=== PATIENT | male | born 1985 | race African-American/Black ===

== ENCOUNTER 2023-07-22 12:06 | Emergency (ER) | payer BC ==
--- OUTSIDE RECORDS SUMMARY | 2023-07-22 12:11 | XMS REPORT | Continuity of Care Document ---
:1985 Author Organization [facility] t Address [address] [place] [address] [address] [place] [address] Care Team Providers Name Role Phone ALEXIS HILL Primary Care Physician Unavailable RADIOLOGY Attending Clinician Unavailable Radiology Attending Clinician Unavailable Doctor Unassigned, [place] Attending Clinician Unavailable ALEXIS HILL Admitting Clinician Unavailable Payers Payer Name Policy Type Policy Number Effective Date Expiration Date S [facility] - [id number] 2018 00:00:00 OUT OF STATE Problems Condition Condition Condition Status Onset Resolution Last Treating Co mments Source Name Details Category Date Date Treatment Clinician Date Tobacco Tobacco Disease Active Univers abuse abuse 09-21 ity of 00:00: [address] Allergies, Adverse Reactions, Alerts Allergy Allergy Status Severity Reaction(s) Onset Inactive Treating Comm ents Source Name Type Date Date Clinician NO KNOWN Drug Active Univers ALLERGIE Class ity of S [facility] Social History Social Habit Start Date Stop Date Quantity Comments Source History of Occasional tobacco Univer sity of tobacco use smoker [facility] Tobacco use and 2018-09-21 2018-09-21 Smokeless tobacco Un iversity of exposure 00:00:00 00:00:00 non-user [facility] Sex Assigned At [birth year] Universit y of 00:00:00 00:00:00 [facility] Smoking Status Start Date Stop Date Source Occasional tobacco smoker 2018-09-21 00:00:00 Un iversity of [facility] Medications Ordered Filled Start Stop Current Ordering Indication Dosage Frequency Signature Comments Components Source Medication Medication Date Date Medication? Clinician (SIG) Name Name acetaminoph 2018-0 Yes [id number] 09/14 Univers en-codeine 1-09 tab Every ity of 300-30 mg 00:00: 4hrs as [place] tablet 00 needed for Medical pain or Branch cough requiring narcotic acetaminoph 2018-0 Yes [id number] 09/14 Univers en-codeine 1-09 tab Every ity of 300-30 mg 00:00: 4hrs as [place] tablet 00 needed for Medical pain or Branch cough requiring narcotic Procedures Procedure Date / Time Performed Performing Clinician [facility] e ASSIGNMENT OF BENEFITS 2022-05-01 21:42:02 Doctor Unassigned, No [facility] Branch Encounters Start End Encounter Admission Attending Care Care Encounter Source Date/Time Date/Time Type Type Clinicians Facility Department ID 2022-05-01 2022-05-01 Outpatient R RADIOLOGY [facility] [id number] Univers 16:45:22 23:59:00 ity of [facility] 2022-05-01 2022-05-01 Hospital Radiology [facility] [id number] Univers 16:45:00 23:59:00 Encounter [place] [id number] ity of [place] [id number] [place] [facility] [id number] [facility] 807 Branch 2022-05-01 2022-05-01 Orders Doctor OANH [id number] Univers 00:00:00 00:00:00 Only Unassigned, GA[place] [id number] ity of [place] [facility] [id number] Marty as [id number] [facility] 009 Branch Results This patient has no known results.
[2023-07-22 13:29] LABS: Absolute Lymphocytes (CBC) 1.3 K/uL (0.7-4.9); Lymphocytes % 27.4 % (15.3-44.8); MCV 93.4 fL (80-100); MPV 8.9 fL (7.6-11.3); Platelets 262 thou/uL (152-406); RBC Red Blood Cell Count 4.28 M/uL (4.33-5.43)
[2023-07-22] MEDS ORDERED: NA CHLORIDE 0.9% 1,000 ML ONE (13:55)
[2023-07-22 13:57] LABS: ALT/SGPT 26 U/L (16-61); Albumin 3.7 g/dL (3.4-5.0); Alkaline Phosphatase 60 U/L (45-117); BUN Blood Urea Nitrogen 35 mg/dL (7-18); Bilirubin Total 0.4 mg/dL (0.2-1.0); Glomerular Filtration Rate 36 ml/min (=/>90); Glucose Level 590 mg/dL (74-106); Protein, Total 8.4 g/dL (6.4-8.2); Sodium Level 125 mEq/L (136-145); Troponin High Sensitivity 6.9 pg/mL (<58.9)
[2023-07-22 13:58] LABS: AST/SGOT 10 U/L (15-37); Bilirubin Direct < 0.1 mg/dL (0-0.2); Bilirubin Indirect, Calculated ND mg/dL (0.2-0.8); NT PRO-BNP < 5 pg/mL (<125); Potassium 4.8 mEq/L (3.5-5.1)
[2023-07-22 13:59] LABS: Magnesium 2.5 mg/dL (1.6-2.4)
[2023-07-22 14:01] LABS: Bicarbonate 8 mEq/L (21-32)
[2023-07-22] MEDS ORDERED: INSULIN REGULAR (HUMAN) 100 UNIT/ML ONE (14:07)
[2023-07-22] MEDS ORDERED: INSULIN -REGULAR HUMAN 100 UNIT in NA CHLORIDE 0.9% 100 ML IV SCH (15:00)
--- NOTE | 2023-07-22 15:01 | EDPHYS ---
Physician Documentation [facility] Name: Jose Watkins Age: 37 yrs Sex: Male : 1985 Arrival Date: 07/22/2023 Time: 12:06 Bed 17 Private MD: ED Physician Kayden Harp HPI: 07/22 13:44 This 37 yrs old Black Male presents to ER via Wheelchair with complaints of High Blood sp3 Sugar. 13:44 37-year-old male with a history of gout, hypertension presents to the ED with chief sp3 complaint 3 days of fatigue, polyuria, polydipsia with no prior history of diabetes. Blood sugar in the emergency department demonstrates new onset diabetes at 490 blood sugar level. He denies any other symptoms including fever, headache, URI symptoms, chest pain, shortness of breath, vomiting or diarrhea, syncope, near syncope, neuro symptoms, known sick contacts, or any other signs or symptoms at this time. Patient did have travel history to [place] for family vacation.. Historical: - Allergies: 12:41 No Known Allergies; iw - PMHx: 12:41 Gout; iw - Immunization history:: Adult Immunizations up to date. - Social history:: Smoking status: Patient denies any tobacco usage or history of. Patient/guardian denies using alcohol. ROS: 13:45 Eyes: Negative for injury, pain, redness, and discharge, ENT: Negative for injury, sp3 pain, and discharge, Neck: Negative for injury, pain, and swelling, Cardiovascular: Negative for chest pain, palpitations, and edema, Respiratory: Negative for shortness of breath, cough, wheezing, and pleuritic chest pain, Back: Negative for injury and pain, MS/Extremity: Negative for injury and deformity, Skin: Negative for injury, rash, and discoloration, Psych: Negative for depression, anxiety, suicide ideation, homicidal ideation, and hallucinations, Allergy/Immunology: Negative for hives, rash, and allergies, 13:45 All other systems are negative, Exam: 13:45 Constitutional: This is a well developed, well nourished patient who is awake, alert, sp3 and in no acute distress. Head/Face: Normocephalic, atraumatic. Eyes: Pupils equal round and reactive to light, extra-ocular motions intact. Lids and lashes normal. Conjunctiva and sclera are non-icteric and not injected. Cornea within normal limits. Periorbital areas with no swelling, redness, or edema. Neck: Trachea midline, no thyromegaly or masses palpated, and no cervical lymphadenopathy. Supple, full range of motion without nuchal rigidity, or vertebral point tenderness. No Meningismus. Chest/axilla: Normal chest wall appearance and motion. Nontender with no deformity. No lesions are appreciated. Cardiovascular: Regular rate and rhythm with a normal S1 and S2. No gallops, murmurs, or rubs. Normal PMI, no JVD. No pulse deficits. Respiratory: Lungs have equal breath sounds bilaterally, clear to auscultation and percussion. No rales, rhonchi or wheezes noted. No increased work of breathing, no retractions or nasal flaring. Abdomen/GI: Soft, non-tender, with normal bowel sounds. No distension or tympany. No guarding or rebound. No evidence of tenderness throughout. Back: No spinal tenderness. No costovertebral tenderness. Full range of motion. Skin: Warm, dry with normal turgor. Normal color with no rashes, no lesions, and no evidence of cellulitis. MS/ Extremity: Pulses equal, no cyanosis. Neurovascular intact. Full, normal range of motion. Neuro: Awake and alert, GCS 15, oriented to person, place, time, and situation. Cranial nerves II-XII grossly intact. Motor strength 5/5 in all extremities. Sensory grossly intact. Cerebellar exam normal. Normal gait. Psych: Awake, alert, with orientation to person, place and time. Behavior, mood, and affect are within normal limits. 15:06 ECG was reviewed by the Attending Physician. EKG demonstrates normal sinus rhythm at 86 sp3 bpm with normal intervals, normal QRS, normal axis, normal axis ST segments without evidence of acute ischemia. Vital Signs: 12:41 BP 101 / 53; Pulse 88; Resp 16; Temp 98.2; Pulse Ox 100% on R/A; Weight 127.46 kg; iw Height 6 ft. 1 in. ; 13:44 BP 126 / 85; Pulse 88; Resp 21; Pulse Ox 100% on R/A; ld1 14:46 BP 120 / 45; Pulse 92; Pulse Ox 99% ; tm6 15:30 BP 91 / 52; Pulse 93; Resp 18; Pulse Ox 100% on R/A; tm6 16:00 BP 101 / 48; Pulse 94; Pulse Ox 99% on R/A; tm6 12:41 Body Mass Index 37.07 (127.46 kg, 185.42 cm) iw MDM: 12:40 Patient medically screened. sp3 13:46 Data reviewed: vital signs, nurses notes, lab test result(s), radiologic studies. ED sp3 course: 37-year-old male with new onset diabetes. Consider hyperglycemia with mild dehydration versus early DKA. I am not highly suspicious for sepsis, shock, or other inducing event. Disposition pending work-up and patient course.. 14:59 ED course: Discussed with ICU topper press operator at [facility] who has accepted the sp3 patient. We will transfer to the ICU at this time.. 11 12:44 Order name: Basic Metabolic Panel; Complete Time: 14:05 sp3 07/22 12:44 Order name: CBC with Diff; Complete Time: 13:47 sp3 07/22 12:44 Order name: LFT's; Complete Time: 14:05 sp3 07/22 12:44 Order name: Magnesium; Complete Time: 14:05 sp3 07/22 12:44 Order name: NT PRO-BNP; Complete Time: 14:05 sp3 07/22 12:44 Order name: Troponin HS; Complete Time: 14:05 sp3 07/22 12:44 Order name: Lactate w/ 2H reflex if indic.; Complete Time: 13:47 sp3 07/22 13:01 Order name: Glucose, Ancillary Testing; Complete Time: 13:18 EDMS 07/22 14:18 Order name: Glucose, Ancillary Testing; Complete Time: 14:38 EDMS 07/22 14:35 Order name: Glucose, Ancillary Testing; Complete Time: 14:38 EDMS 07/22 16:00 Order name: Glucose, Ancillary Testing EDIA 07/22 12:44 Order name: EKG; Complete Time: 12:45 sp3 07/22 12:44 Order name: Cardiac monitoring; Complete Time: 13:40 sp3 07/22 12:44 Order name: EKG - Nurse/Tech; Complete Time: 13:40 sp3 07/22 12:44 Order name: IV Saline Lock; Complete Time: 13:38 sp3 07/22 12:44 Order name: Labs collected and sent; Complete Time: 13:38 sp3 07/22 12:44 Order name: O2 Per Protocol; Complete Time: 13:38 sp3 07/22 12:44 Order name: O2 Sat Monitoring; Complete Time: 13:38 sp3 07/22 12:44 Order name: Accucheck; Complete Time: 12:50 sp3 07/22 13:10 Order name: Labs - recollect needed: LT GREEN , LAVENDER lipemic protocol; Complete bc6 Time: 13:43 Administered Medications: 13:43 Drug: NS 0.9% IV 1000 ml IV at 1 bolus Per protocol; 1000 mL bolus Route: IV; Rate: 1 ld1 bolus; Site: right antecubital; 14:06 Drug: Insulin Regular Human IVP 10 units IVP once {Co-Signature: mery (Suzanna Dsouza tm6 RN).} Route: IVP; Site: right antecubital; 14:35 Drug: Insulin Drip - (Insulin Regular Human IVP 100 units, NS 0.9% IV 100 ml) IV at tm6 calculated rate continuous; Standard concentration 1unit/ml; Dose for DKA is 0.1 units/kg/hr {Co-Signature: mery (Suzanna Dsouza RN).} Route: IV; Rate: calculated rate; Site: right antecubital; Disposition Summary: 07/22/23 15:01 Transfer Ordered Notes: Transfer Location: Other Acute Care Facility sp3 Reason: Higher level of care sp3 Condition: Critical sp3 Problem: new sp3 Symptoms: are unchanged sp3 Accepting Physician: Dr. Aquino in the ICU(07/22/23 16:29) ld1 Diagnosis - Diabetic ketoacidosis, dehydration, hyperglycemia sp3 Discharge Instructions: - Discharge Summary Sheet bc6 Forms: - Medication Reconciliation Form sp3 - SBAR form bc6 - Family Work Release tm6 Signatures: Dispatcher [employer] Airam Amaro RN RN iw Attema, Lee, FNP-C FNP-ClaSuzanna Klein RN RN ld1 Kayden Harp MD MD sp3 [place]son, Breana bc6 Salima Sahni RN RN tm6 Suzanna Dsouza RN ld1 Corrections: (The following items were deleted from the chart) 16:29 15:01 Dr. Aquino in the ICU sp3 ld1
--- NOTE | 2023-07-22 15:01 | ER ---
Nurse's Notes [facility] Name: Jose Watkins Age: 37 yrs Sex: Male : 1985 Arrival Date: 07/22/2023 Time: 12:06 Bed 17 Private MD: Diagnosis: Diabetic ketoacidosis, dehydration, hyperglycemia Presentation: 07/22 12:39 Chief complaint: Patient states: went to Dr. Lombardi for sleeping a lot, drinking a lot iw of water, weight loss, had labs done, they were worried that he had diabetes, no hx of diabetes, BP was low in office. Coronavirus screen: At this time, the client does not indicate any symptoms associated with coronavirus-19. Ebola Screen: Patient negative for fever greater than or equal to 101.5 degrees Fahrenheit, and additional compatible Ebola Virus Disease symptoms Patient denies exposure to infectious person. Patient denies travel to an Ebola-affected area in the 21 days before illness onset. No symptoms or risks identified at this time. Initial Sepsis Screen: Does the patient meet any 2 criteria? No. Patient's initial sepsis screen is negative. Does the patient have a suspected source of infection? No. Patient's initial sepsis screen is negative. Risk Assessment: Do you want to hurt yourself or someone else? Patient reports no desire to harm self or others. Onset of symptoms was July 14, 2023. 12:39 Method Of Arrival: Wheelchair iw 12:39 Acuity: RAPHAEL 3 iw Triage Assessment: 15:50 General: Behavior is calm, cooperative, drowsy. General: Appears in no apparent tm6 distress. Pain: Denies pain. EENT: No signs and/or symptoms were reported regarding the EENT system. Neuro: Level of Consciousness is awake, alert, obeys commands, Oriented to person, place, time, situation. Cardiovascular: Capillary refill < 3 seconds Patient's skin is warm and dry. Respiratory: Airway is patent Respiratory effort is even, unlabored, Respiratory pattern is regular, symmetrical. GI: Abdomen is round. : No signs and/or symptoms were reported regarding the genitourinary system. Derm: No signs and/or symptoms reported regarding the dermatologic system. Musculoskeletal: No signs and/or symptoms reported regarding the musculoskeletal system. Historical: - Allergies: 12:41 No Known Allergies; iw - PMHx: 12:41 Gout; iw - Immunization history:: Adult Immunizations up to date. - Social history:: Smoking status: Patient denies any tobacco usage or history of. Patient/guardian denies using alcohol. Screenin:48 [facility] ED Fall Risk Assessment (Adult) History of falling in the last 3 months, tm6 including since admission No falls in past 3 months (0 pts). Abuse screen: Denies threats or abuse. Denies injuries from another. Nutritional screening: No deficits noted. Tuberculosis screening: No symptoms or risk factors identified. Assessment: 13:47 General: Appears in no apparent distress. Pain: Denies pain. Neuro: Level of tm6 Consciousness is awake, alert, obeys commands, Oriented to person, place, time, situation. Cardiovascular: Capillary refill < 3 seconds Patient's skin is warm and dry. Respiratory: Airway is patent Respiratory effort is even, unlabored, Respiratory pattern is regular, symmetrical. GI: Abdomen is round non-distended. : No signs and/or symptoms were reported regarding the genitourinary system. EENT: No signs and/or symptoms were reported regarding the EENT system. Derm: No signs and/or symptoms reported regarding the dermatologic system. Musculoskeletal: No signs and/or symptoms reported regarding the musculoskeletal system. Vital Signs: 12:41 BP 101 / 53; Pulse 88; Resp 16; Temp 98.2; Pulse Ox 100% on R/A; Weight 127.46 kg; iw Height 6 ft. 1 in. ; 13:44 BP 126 / 85; Pulse 88; Resp 21; Pulse Ox 100% on R/A; ld1 14:46 BP 120 / 45; Pulse 92; Pulse Ox 99% ; tm6 15:30 BP 91 / 52; Pulse 93; Resp 18; Pulse Ox 100% on R/A; tm6 16:00 BP 101 / 48; Pulse 94; Pulse Ox 99% on R/A; tm6 12:41 Body Mass Index 37.07 (127.46 kg, 185.42 cm) iw ED Course: 12:09 Patient arrived in ED. mr 12:11 Kayden Harp MD is Attending Physician. sp3 12:41 Triage completed. iw 12:41 Arm band placed on. iw 13:44 Inserted saline lock: 20 gauge in right antecubital area, using aseptic technique. ld1 Blood collected. 13:47 Salima Sahni, RN is Primary Nurse. tm6 13:48 Patient has correct armband on for positive identification. Bed in low position. Call tm6 light in reach. Side rails up X2. Provided Education on: need for fluids. Client placed on continuous cardiac and pulse oximetry monitoring. NIBP monitoring applied. Door closed. Noise minimized. Lights dimmed. 13:48 No provider procedures requiring assistance completed. tm6 14:21 spoke with yudith at the transfer center . of [facility]. bc6 15:02 Inserted saline lock: 20 gauge in left antecubital area, using aseptic technique. ld1 15:10 transfer acceptance. bc6 15:55 spoke with og at EMS for a truck . 6 16:15 Patient transferred, IV remains in place. ld1 Administered Medications: 13:43 Drug: NS 0.9% IV 1000 ml IV at 1 bolus Per protocol; 1000 mL bolus Route: IV; Rate: 1 ld1 bolus; Site: right antecubital; 14:06 Drug: Insulin Regular Human IVP 10 units IVP once {Co-Signature: mery (Suzanna Dsouza [facility] RN).} Route: IVP; Site: right antecubital; 14:35 Drug: Insulin Drip - (Insulin Regular Human IVP 100 units, NS 0.9% IV 100 ml) IV at [facility] calculated rate continuous; Standard concentration 1unit/ml; Dose for DKA is 0.1 units/kg/hr {Co-Signature: mery (Suzanna Dsouza RN).} Route: IV; Rate: calculated rate; Site: right antecubital; Medication: 13:47 VIS not applicable for this client. tm6 Outcome: 15:01 ER care complete, transfer ordered by . sp3 15:52 Transferred by ground EMS to [facility], [facility], Note: [place] [id number] [address] 15:52 Transferred Note: report given to Radha GUNN 15:52 Condition: stable 15:52 Instructed on the need for transfer, 16:29 Patient left the ED. ld1 Signatures: Marilia Hall, Reg Reg mr Airam Cardenas RN RN Suzanna Dsouza RN RN ld1 Kayden Harp MD MD sp3 Meghana Hilton [facility] Salima Sahni RN RN tm6 Suzanna Dsouza RN ld1 Corrections: (The following items were deleted from the chart) 12:52 12:41 BP 101 / 53; Pulse 88bpm; Resp 16bpm; Pulse Ox 100% RA; 127.46 kg; Height 6 ft. 1 iw in.; BMI: 37.0; iw
[2023-07-22 16:55] VITALS: TEMP 98.2
[2023-07-22 16:58] VITALS: BP 120/45; O2SAT 99
--- NOTE | 2023-07-24 14:12 | EKG ---
Test Date: 2023-07-22 Test Time: 17:59:45 Horse Show Manager: ADRIANNA MEASUREMENT RESULTS: Intervals: Rate: 80 IA: 182 QRSD: 88 QT: 366 QTc: 422 [place]: P: 25 IA: 182 QRS: 18 T: 24 INTERPRETIVE STATEMENTS: Sinus rhythm with occasional premature ventricular complexes Otherwise normal ECG No previous ECG available for comparison Electronically Signed On 07-24-23 14:07:52 HEAVY DUTY PRESS OPERATOR by Sae Gee
--- NOTE | 2023-07-24 14:14 | EKG ---
Test Date: 2023-07-22 Test Time: 13:23:16 Turret Lathe Set Up Operator: MADI MEASUREMENT RESULTS: Intervals: Rate: 86 TX: 156 QRSD: 96 QT: 342 QTc: 409 [place]: P: 56 TX: 156 QRS: 40 T: 33 INTERPRETIVE STATEMENTS: Normal sinus rhythm Normal ECG No previous ECG available for comparison Electronically Signed On 07-24-23 14:08:30 ROAD MACHINE OPERATOR by Sae Gee
== END 2023-07-22 16:29 ==
LOC: ER 12:06
DX: E11.10 Type 2 diabetes mellitus with ketoacidosis without coma (principal); E86.0 Dehydration
CPT/HCPCS: 93005 ×2; 85025; 80048; 36415; 83735; 82947 ×5; 80076; 83605; 84484; 83880; 96374; 99285; J1815 ×2; J7030